=== PATIENT | female | born 1970 | race African-American/Black ===

== ENCOUNTER 2017-04-27 02:27 | Inpatient (IN) | payer MEDICAID, OTHER ==
[~2017-04-27] VITALS: Ht 167.6 cm; Wt 110.2 kg
[2017-04-27] MEDS: IPRATROPIUM/ALBUTEROL 0.5-3(2.5)MG/3ML NEB HHN SCH ×2 (00:15→20:00)
[2017-04-27] MEDS ORDERED: SODIUM CHLORIDE 0.9% 2,500 ML IV ONE (02:51)
[2017-04-27] MEDS ORDERED: VANCOMYCIN 1 G PREMIX 200 ML IV SCH (03:00)
[2017-04-27] MEDS ORDERED: PIPERACILLIN/TAZOBACTAM 3.375GM/50ML PREMIX IV ONE (03:00)
[2017-04-27 03:14] LABS: HEMATOCRIT. 29.7 % (36.0-48.0); HEMOGLOBIN. 9.2 g/dL (12.0-16.0); MEAN CORPUSCULAR HEMOGLOBIN 21.3 pg (28.0-32.0); MEAN CORPUSCULAR VOLUME 69.1 fL (81.0-99.0); MEAN PLATELET VOLUME 9.6 fl (7.4-10.4); PLATELET 196 x1000/uL (130-400); RED CELL DISTRIBUTION WIDTH 18.4 % (11.6-14.6)
[2017-04-27 03:21] LABS: INR 1.7; PROTHROMBIN TIME 17.8 sec
[2017-04-27 03:30] LABS: CARBON DIOXIDE 22 mEq/L (21-32); CHLORIDE 102 mEq/L (98-107); TROPONIN I 0.03 ng/mL (0.00-0.04)
[2017-04-27] MEDS ORDERED: PIPERACILLIN SODIUM/TAZOBACTAM 4.5 G in DEXT 5% WATER 100 ML IV NR (03:30)
[2017-04-27 03:37] LABS: PLATELET ESTIMATE NORMAL
[2017-04-27 03:49] LABS: KETONES URINE 2+ (NEGATIVE); LEUKOCYTE ESTERASE URINE 3+ (NEGATIVE); NITRITE URINE POSITIVE (NEGATIVE); OCCULT BLOOD URINE 3+ (NEGATIVE); PROTEIN URINE 2+ (NEGATIVE); SPECIFIC GRAVITY URINE 1.024 (1.005-1.030)
[2017-04-27 03:52] LABS: CLARITY URINE CLOUDY (CLEAR); COLOR URINE ORANGE (YELLOW)
[2017-04-27] MEDS ORDERED: MORPHINE SULFATE 2 MG/ML CPJ (NOT FOR IM USE) IV NR (04:45)
[2017-04-27] MEDS ORDERED: MAGNESIUM/ALUMINUM HYDROXIDE/SIMETHICONE 30ML UDC PO PRN (06:00)
[2017-04-27] MEDS ORDERED: DIPHENHYDRAMINE 50MG/ML VIAL IV PRN (06:00)
[2017-04-27] MEDS ORDERED: IPRATROPIUM/ALBUTEROL 0.5-3(2.5)MG/3ML NEB INH PRN (06:00)
[2017-04-27] MEDS ORDERED: ACETAMINOPHEN 325MG TABLET PO PRN (06:00)
[2017-04-27] MEDS ORDERED: ONDANSETRON HCL 4MG/2ML VIAL IV PRN (06:00)
[2017-04-27] MEDS ORDERED: KCL 20MEQ/100ML PREMIX 100 ML IV ONE (06:29)
[2017-04-27] MEDS: SODIUM CHLORIDE 0.9% 1,000 ML IV SCH ×3 (06:52→17:54)
[2017-04-27] MEDS ORDERED: GENTAMICIN SULFATE 150 MG in SODIUM CHLORIDE 0.9% 100 ML IV NR (09:30)
[2017-04-27] MEDS ORDERED: MAGNESIUM 1 G PREMIX 100 ML IV NR (09:30)
[2017-04-27] MEDS ORDERED: LEVOFLOXACIN 500MG PREMIX 100 ML IV NR (10:00)
[2017-04-27] MEDS: MORPHINE SULFATE 4 MG/ML CPJ (NOT FOR IM USE) IV PRN (17:27)
[2017-04-28] MEDS: SODIUM CHLORIDE 0.9% 1,000 ML IV SCH ×3 (00:25→16:18)
[2017-04-28] MEDS: IPRATROPIUM/ALBUTEROL 0.5-3(2.5)MG/3ML NEB HHN SCH ×3 (03:11→08:28)
[2017-04-28 07:13] LABS: HEMATOCRIT. 27.3 % (36.0-48.0); HEMOGLOBIN. 8.9 g/dL (12.0-16.0); MEAN CORPUSCULAR HEMOGLOBIN 21.8 pg (28.0-32.0); MEAN CORPUSCULAR VOLUME 67.2 fL (81.0-99.0); MEAN PLATELET VOLUME 9.8 fl (7.4-10.4); PLATELET 187 x1000/uL (130-400); RED BLOOD CELL COUNT 4.07 mill/uL (4.2-5.4)
[2017-04-28] MEDS: GENTAMICIN 120MG PREMIX 100 ML IV SCH (09:33)
[2017-04-28] MEDS: LEVOFLOXACIN 250MG PREMIX 50 ML IV SCH (10:46)
[2017-04-28] MEDS: MORPHINE SULFATE 4 MG/ML CPJ (NOT FOR IM USE) IV PRN ×2 (11:34→18:59)
[2017-04-28 13:01] LABS: PLATELET ESTIMATE NORMAL
[2017-04-29] MEDS: SODIUM CHLORIDE 0.9% 1,000 ML IV SCH ×3 (03:33→22:04)
[2017-04-29] MEDS: MORPHINE SULFATE 4 MG/ML CPJ (NOT FOR IM USE) IV PRN ×2 (07:00→16:07)
[2017-04-29] MEDS ORDERED: LOPERAMIDE HCL 2MG CAPSULE PO SCH (07:00)
[2017-04-29 07:03] LABS: HEMATOCRIT. 27.1 % (36.0-48.0); HEMOGLOBIN. 8.7 g/dL (12.0-16.0); MEAN CORPUSCULAR HEMOGLOBIN 21.6 pg (28.0-32.0); MEAN CORPUSCULAR VOLUME 67.7 fL (81.0-99.0); MEAN PLATELET VOLUME 9.8 fl (7.4-10.4); PLATELET 192 x1000/uL (130-400); RED BLOOD CELL COUNT 4.01 mill/uL (4.2-5.4); RED CELL DISTRIBUTION WIDTH 18.2 % (11.6-14.6)
[2017-04-29] MEDS: GENTAMICIN 120MG PREMIX 100 ML IV SCH (10:49)
[2017-04-29] MEDS: LEVOFLOXACIN 250MG PREMIX 50 ML IV SCH (11:27)
[2017-04-29] MEDS: IPRATROPIUM/ALBUTEROL 0.5-3(2.5)MG/3ML NEB HHN SCH (11:54)
[2017-04-29 13:03] LABS: PLATELET ESTIMATE NORMAL
[2017-04-30] MEDS: SODIUM CHLORIDE 0.9% 1,000 ML IV SCH (04:15)
[2017-04-30] MEDS ORDERED: GENTAMICIN 120MG PREMIX 100 ML IV SCH (06:00)
[2017-04-30] MEDS ORDERED: LEVOFLOXACIN 500MG PREMIX 100 ML IV SCH (09:00)
[2017-04-30 15:49] VITALS: BP 131/78
== END 2017-04-30 16:30 | disposition home or self-care (01) | DRG 720 ==
LOC: ER 02:29 → 5EST 05:47 → EDBEDREQ 05:52 → 5EST 04-28 14:48
PROVIDERS: ADMIT Internal Medicine; ATTEND Internal Medicine
DX: A41.9 Sepsis, unspecified organism (principal); E43 Unspecified severe protein-calorie malnutrition; N17.9 Acute kidney failure, unspecified; I95.9 Hypotension, unspecified; K58.9 Irritable bowel syndrome, unspecified; N10 Acute pyelonephritis; Z68.39 Body mass index [BMI] 39.0-39.9, adult
CPT/HCPCS: 36415; 71010; 74176; 80048; 80053; 80170; 81001; 83605; 83735; 84100; 84484; 85025; 85610; 87040; 87077; 87086; 87186; 87493; 93005; 94640; 96365; 96366; 96367; 96375; 99291; J1200; J1580; J1956; J2270; J2543; J3370; J3475; J3480; J7030; J7040; J7050; J7060; J7620

== ENCOUNTER 2024-06-27 00:39 | Emergency (ER) | payer MEDICAID ==
[~2024-06-27] VITALS: Ht 167.6 cm; Wt 87.0 kg
[2024-06-27 00:51] VITALS: O2SAT 100
[2024-06-27 03:22] LABS: BASOPHILS % 0.7 % (0.0-2.0); EOSINOPHILS % 3.4 % (0.0-5.0); HEMATOCRIT. 39.8 % (36.0-48.0); HEMOGLOBIN. 12.7 g/dL (12.0-16.0); LYMPHOCYTES % 32.4 % (20.0-50.0); MEAN CORPUSCULAR HEMOGLOBIN 26.4 pg (28.0-32.0); MEAN CORPUSCULAR HGB CONC 31.9 g/dL (31.0-37.0); MEAN CORPUSCULAR VOLUME 82.8 fL (81.0-99.0); MEAN PLATELET VOLUME 8.9 fl (7.4-10.4); MONOCYTES % 6.9 % (2.0-8.0); NEUTROPHILS % 56.6 % (40.0-76.0); PLATELET 201 x1000/uL (130-400); RED BLOOD CELL COUNT 4.81 mill/uL (4.2-5.4); RED CELL DISTRIBUTION WIDTH 14.6 % (11.6-14.6); WHITE BLOOD COUNT 5.3 x1000/uL (4.5-11.0)
[2024-06-27 03:44] LABS: CHLORIDE 106 mEq/L (98-107); POTASSIUM 4.3 mEq/L (3.5-5.1); SODIUM 140 mEq/L (136-145)
[2024-06-27 03:45] LABS: CARBON DIOXIDE 29 mEq/L (21-32)
[2024-06-27 03:46] LABS: CALCIUM 9.2 mg/dL (8.7-10.4)
[2024-06-27 03:50] LABS: GLUCOSE 104 mg/dL (70-105); UREA NITROGEN BLOOD 12 mg/dL (9-23)
[2024-06-27 03:53] LABS: TROPONIN I HIGH SENSITIVITY < 4 ng/L (3.0-34)
[2024-06-27 04:00] VITALS: BP 161/90; PULSE 84; RESP 19; TEMP 37.00296; O2SAT 100
[2024-06-27] MEDS ORDERED: CELE100C MT (04:04)
== END 2024-06-27 04:15 | disposition home or self-care (01) ==
LOC: ER 00:56
DX: M13.861 Other specified arthritis, right knee (principal)
CPT/HCPCS: 36415; 71045; 73562; 80048; 83880; 84484; 85025; 99284

== ENCOUNTER 2025-09-21 11:22 | Emergency (ER) | payer MEDICAID ==
[~2025-09-21] VITALS: Ht 165.1 cm; Wt 86.0 kg
[~2025-09-21 11:22] MED LIST: CELE100C MT
[2025-09-21 11:28] VITALS: O2SAT 100
[2025-09-21] MEDS: SODIUM CHLORIDE 0.9% 1,000 ML IV ONE (11:59)
[2025-09-21] MEDS: ONDANSETRON HCL 4MG/2ML INJ IV ONE (11:59)
[2025-09-21] MEDS: FAMOTIDINE 20MG/2ML VIAL IV ONE (12:00)
[2025-09-21] MEDS: MORPHINE SULFATE 4 MG/ML INJ (FOR IV/IM USE) IV ONE (12:00)
[2025-09-21 12:34] LABS: BASOPHILS % 0.4 % (0.0-2.0); EOSINOPHILS % 0.1 % (0.0-5.0); HEMATOCRIT. 40.7 % (36.0-48.0); HEMOGLOBIN. 13.6 g/dL (12.0-16.0); LYMPHOCYTES % 15.1 % (20.0-50.0); MEAN PLATELET VOLUME 8.7 fl (7.4-10.4); MONOCYTES % 3.2 % (2.0-8.0); NEUTROPHILS % 81.2 % (40.0-76.0); PLATELET 226 x1000/uL (130-400); RED BLOOD CELL COUNT 4.91 mill/uL (4.2-5.4); RED CELL DISTRIBUTION WIDTH 13.6 % (11.6-14.6)
[2025-09-21 12:49] LABS: CREATININE 0.9 mg/dL (0.6-1.0); UREA NITROGEN BLOOD 12 mg/dL (9-23)
[2025-09-21 12:51] LABS: ASPARTATE AMINOTRANSFERASE 16 IU/L (<34); BILIRUBIN DIRECT < 0.1 mg/dL (<=3.0)
[2025-09-21 12:52] LABS: BILIRUBIN TOTAL 0.4 mg/dL (0.1-1.0); PROTEIN TOTAL 7.9 g/dL (6.0-8.3)
[2025-09-21] MEDS: KCL 20MEQ/100ML PREMIX 100 ML IV SCH (14:44)
[2025-09-21 15:39] LABS: CLARITY URINE CLEAR (CLEAR); COLOR URINE YELLOW (YELLOW); GLUCOSE URINE NEGATIVE (NEGATIVE); KETONES URINE 1+ (NEGATIVE); LEUKOCYTE ESTERASE URINE NEGATIVE (NEGATIVE); NITRITE URINE NEGATIVE (NEGATIVE); OCCULT BLOOD URINE NEGATIVE (NEGATIVE); PH URINE >=9.0 (4.5-8.0); PROTEIN URINE NEGATIVE (NEGATIVE); SPECIFIC GRAVITY URINE 1.013 (1.005-1.030); UROBILINOGEN URINE 0.2 E.U./dL (0.2-1.0)
[2025-09-21] MEDS ORDERED: POTA-205 MT (16:39)
[2025-09-21] MEDS ORDERED: ONDA-239 PO (16:39)
[2025-09-21 17:06] VITALS: BP 149/89; PULSE 99; RESP 19; TEMP 36.7; O2SAT 100
== END 2025-09-21 17:07 | disposition home or self-care (01) ==
LOC: ER 11:22
DX: E87.6 Hypokalemia (principal); K58.9 Irritable bowel syndrome, unspecified; I10 Essential (primary) hypertension; Z79.899 Other long term (current) drug therapy; M19.90 Unspecified osteoarthritis, unspecified site; Z78.0 Asymptomatic menopausal state; Z79.1 Long term (current) use of non-steroidal anti-inflammatories (NSAID)
CPT/HCPCS: 80076; 80048; 81003; 83690; 85025; 36415; 96361; 96365; 96375; 99285; J1308; J2405; J3480; J2270; J7030; Z7610

== ENCOUNTER 2025-10-04 14:48 | Emergency (ER) | payer MEDICAID ==
[~2025-10-04] VITALS: Ht 165.1 cm; Wt 81.0 kg
[~2025-10-04 14:48] MED LIST changes: +ONDA-239 PO; +POTA-205 MT
[2025-10-04 14:58] VITALS: O2SAT 100
[2025-10-04] MEDS: ACETAMINOPHEN 325MG TABLET PO ONE (16:41)
[2025-10-04] MEDS ORDERED: TOPUD PO (16:59)
[2025-10-04] MEDS ORDERED: LIDO-53 TP (16:59)
[2025-10-04 17:17] VITALS: BP 125/80; PULSE 17; RESP 16; TEMP 36.9; O2SAT 100
== END 2025-10-04 17:35 | disposition home or self-care (01) ==
LOC: ER 14:48
DX: M48.02 Spinal stenosis, cervical region (principal); I10 Essential (primary) hypertension; M19.90 Unspecified osteoarthritis, unspecified site; R20.2 Paresthesia of skin
CPT/HCPCS: 99283